=== PATIENT | male | born 1955 | race Caucasian/White ===

== ENCOUNTER 2017-11-22 09:15 | Day surgery (SDC) | payer OTHER ==
--- NOTE | 2017-11-05 21:04 | HP ---
PREOPERATIVE HISTORY AND PHYSICAL: DATE OF ADMISSION/SURGERY: 11/22/17 [facility] DATE OF OFFICE VISIT: 11/04/17 ATTENDING SURGEON: Lebron Clemente MD * (DICTATED BY SULEIMAN ZAFAR) PROCEDURE: Right knee arthroscopy, partial meniscectomy. CHIEF COMPLAINT: Right knee pain. HISTORY OF PRESENT ILLNESS: Jose is a 62-year-old male who presents to the clinic with right knee pain due to a meniscus tear. He has failed conservative measures and has therefore agreed to undergo a right knee arthroscopy and partial meniscectomy with Dr. Clemente on 11/22/17. PAST MEDICAL HISTORY: Positive for Lyme disease, possible sleep apnea but has never been diagnosed with ulcerative colitis. PAST SURGICAL HISTORY: Tonsillectomy. No prior complications with anesthesia. MEDICATIONS: No active medications, ALLERGIES: No known drug allergies. 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 He denies tobacco use. He drinks wine. He denies illegal drug use. FAMILY HISTORY: Positive for diabetes, coronary artery disease, cancer in his mother and father, they are both . Denies family history of DVT or PE. REVIEW OF SYSTEMS: A 14-point review of systems was reviewed with the patient. Positive for current complaint. Otherwise, negative. Denies history of DVT or PE, history of bleeding disorder, chest pain, shortness of breath, fever, or chills. PHYSICAL EXAMINATION GENERAL: A 62-year-old, well-developed, well-nourished male, in no acute distress. Alert and oriented x3. Appropriate mood and affect. Appropriate balance and coordination of the lower extremities. VITAL SIGNS: Height 69.5, weight 180, blood pressure 112/60, respiratory rate 18, temperature 97.8, BMI 26.2. HEENT: Normocephalic, atraumatic. PERRLA. Throat: Clear. NECK: Supple. PULMONARY: Lungs are clear to auscultation bilaterally. No wheezing, rhonchi, or rales. CARDIO: Regular rate and rhythm. S1, S2. No murmurs, gallops, or rubs. No edema. ABDOMEN: Positive bowel sounds, soft, nontender. NEURO: Alert and oriented x3. Cranial nerves grossly intact. Sensation is intact to light touch. MUSCULOSKELETAL: Right lower extremity, skin is intact. No warmth or erythema. Full range of motion, 0 to 130. Stable to varus and valgus stress. Stable Mark. Negative posterior drawer. +5/5 strength with dorsiflexion and plantar flexion. +2 PT pulses. Sensation intact to light touch distally. Pain on deep flexion tenderness to palpation over the medial joint line. Positive Juanis. DIAGNOSTIC STUDIES: Multi-view x-rays and MRI of the right knee revealed medial meniscus tear with mild osteoarthritic changes. IMPRESSION: Right knee medial meniscus tear. PLAN: The patient is scheduled to undergo a right knee arthroscopy, partial meniscectomy with Dr. Clemente on 11/22/17. He will follow up in 10 to 14 days postop for followup and suture removal. Percocet will be used for postop pain management. SULEIMAN ZAFAR [id number]/[facility] #: [id number] DAMIÁN
[~2017-11-22 09:15] MED LIST: Buffered Lidocaine 0.9% SYRIN* 5 ML/SYR SYRINGE INTRADERM ONE; Famotidine IV* 10 MG/ML 2 ML (20 mg) IV ONE
[2017-11-22] MEDS ORDERED: ceFAZolin 2 GM PREMIX (*) 2 GM/50 ML BAG IVPB ONE (09:26)
[2017-11-22] MEDS ORDERED: Famotidine IV* 10 MG/ML 2 ML (20 mg) ONE (09:26)
[2017-11-22] MEDS ORDERED: Lidocain 1% EPI 1:100,000 * 30 ML MDV ONE (09:47)
[2017-11-22] MEDS ORDERED: Bupivacaine 0.25% SDV* 30 ML ONE (09:47)
[2017-11-22] MEDS ORDERED: Midazolam* 1 MG/ML 5 ML VIAL (5 MG) ONE (10:39)
[2017-11-22] MEDS ORDERED: fentaNYL* 50 MCG/ML 2 ML VIAL (100 MCG VIAL) ONE (10:39)
[2017-11-22] MEDS ORDERED: DiMENhydriNATE IV* 50 MG/ML VIAL ONE (11:06)
[2017-11-22] MEDS ORDERED: Ketorolac INJ* 30 MG/ML 1 ML VIAL ONE (11:06)
[2017-11-22] MEDS ORDERED: Propofol* 10 MG/ML 20 ML BTL IV PUSH ONE (11:06)
[2017-11-22] MEDS ORDERED: Lidocaine 2% MPF* 2 ML VIAL ONE (11:06)
[2017-11-22] MEDS ORDERED: Dexamethasone IV* 4 MG/ML 1 ML (4 MG) ONE (11:06)
[2017-11-22] MEDS ORDERED: Acetaminophen TAB* 325 MG PO PRN (11:36)
[2017-11-22] MEDS ORDERED: Ondansetron INJ* 2 MG/ML VIAL IV PRN (11:36)
[2017-11-22] MEDS ORDERED: fentaNYL* 50 MCG/ML 2 ML VIAL (100 MCG VIAL) IV PRN (11:36)
[2017-11-22] MEDS ORDERED: Naloxone* 0.4 MG/ML 1 ML VIAL IV PRN (11:36)
[2017-11-22] MEDS ORDERED: oxyCODONE TAB* 5 MG TAB PO PRN (11:36)
[2017-11-22 12:26] VITALS: BP 121/78
--- NOTE | 2017-11-23 04:14 | OP ---
CC: PCP, Kit Perez MD * DATE OF OPERATION: 11/22/17 [facility] DATE OF : 57 SURGEON: Lebron Clemente MD SILVERWARE ETCHER: None available. PRE-OP DIAGNOSIS: Medial meniscus tear, right knee. POST-OP DIAGNOSIS: Medial meniscus tear, right knee. OPERATIVE PROCEDURE: Right knee arthroscopy with partial medial meniscectomy as well as synovectomy of the lateral compartment. COMPLICATIONS: None. ESTIMATED BLOOD LOSS: Minimal. INDICATIONS: Jose Cramer is a 62-year-old male, who has had persistent medially- based pain. He has had catching and locking. We have done injections and physical therapy and he has failed conservative treatment. Risks and benefits of surgery were discussed at length and included, but not limited to bleeding, infection, damage to nerves, vessels, surrounding structures, wound nonhealing, persistent pain, need for further surgery, scarring, stiffness, incomplete relief of symptoms and risk of anesthesia. DESCRIPTION OF PROCEDURE: The patient was greeted in the preoperative area by the attending surgeon. Correct extremity was marked and consent was confirmed. The patient was brought back to the operating suite, where he was placed in the supine position on the operating table. He then underwent general anesthesia, LMA intubation, after which he was appropriately positioned in the bed. The right leg was then prepped and draped in the usual sterile fashion beginning with chlorhexidine soap, scrub, and alcohol wipe and a final prep with ChloraPrep. After appropriate surgical pause indicating site, side, procedure, and administration of antibiotics, the knee was intra-articularly injected with 1% lidocaine with epi. The lateral portal was made sharply with 11 blade. Scope was introduced into the joint. Joint was examined. There was abundant synovitis anteriorly as well as medially and laterally. The patellofemoral joint had mild chondral changes with grade 0 to 1 changes and the medial and lateral gutters were intact. There was synovitis present anteriorly as well as laterally and medially. The anteromedial portal was made in an outside-in fashion. A shaver was used to debride back the synovitis that was present. ACL and PCL were visualized and found to be intact. The scope was positioned in the medial compartment, had grade 0 to 1 changes in the medial femoral condyle and medial plateau. The medial meniscus had an unstable tear, a degenerative based tear posteromedially. This was debrided back using april, biters with care to prevent any damage to the tibial surface. Once this was completed, attention was directed to the lateral compartment. The lateral compartment had intact meniscus with grade 0 to 1 changes of the lateral femoral condyle and lateral plateau. The knee was placed in extension and a synovectomy was done around the patella particularly laterally and anteriorly as well as medially based. Wounds were copiously irrigated with sterile saline. Final images were obtained. The meniscus was satisfactorily debrided back and the knee was thoroughly lavaged to remove any loose debris. The wound was copiously irrigated with sterile saline and portals were closed with 3-0 nylon. Sterile dressings were applied. The knee was intra-articularly injected with 0.25% Marcaine plain. Sterile dressings were applied. He was awoken from anesthesia , transferred to the PACU in stable condition. POSTOPERATIVE PLAN: He will be weightbearing as tolerated. Crutches for the first 3 to 5 days. Discharged on pain medications. DVT prophylaxis was considered but deferred due to no previous personal or family history. I will see the patient back in 10 to 14 days. [id number]/[facility] #: [id number] DAMIÁN
== END 2017-11-22 12:27 | disposition home or self-care (01) ==
LOC: OREAST 09:15
PROVIDERS: ATTEND Orthopaedic Surgery
DX: S83.241A Other tear of medial meniscus, current injury, right knee, initial encounter (principal); X58.XXXA Exposure to other specified factors, initial encounter; Y92.9 Unspecified place or not applicable; M65.861 Other synovitis and tenosynovitis, right lower leg; G47.33 Obstructive sleep apnea (adult) (pediatric); Z87.891 Personal history of nicotine dependence; M19.90 Unspecified osteoarthritis, unspecified site; F32.9 Major depressive disorder, single episode, unspecified; A69.20 Lyme disease, unspecified
CPT/HCPCS: J0690; J1100; J1240; J1885; J2250; J2704; J3010

== ENCOUNTER 2017-12-29 18:48 | Emergency (ER) | payer OTHER ==
--- OUTSIDE RECORDS SUMMARY | 2017-12-29 19:11 | XMS REPORT ---
:1955 External Reference #:[id number] Author Organization [email or web address] Address [address] [place] [address] [place] [address] Phone [phone] Care Team Providers Name Role Phone Kit Perez MD Primary Care Physician Unavailable Payers Type Date Identification Numbers Payment Provider Subscriber Commercial Policy Number: [id number] [employer] Jose Cramer Group Number: [id number] [id number] PayID: [id number] [place] [address] Problems Date Description Provider Status Onset: 09/16/2017 Localized, primary osteoarthritis Lebron Clemente MD Active Onset: 02/11/2017 Current tear of medial cartilage AND/OR Lebron Clemente MD Active meniscus of knee Onset: 02/02/2017 Arthralgia of the pelvic region and thigh Lebron Clemente MD Active Onset: 02/02/2017 Knee joint effusion Lebron Clemente MD Active Social History Type Date Description Comments ETOH Use Occasionally consumes alcohol Smoking Patient has never smoked Allergies, Adverse Reactions, Alerts Date Description Reaction Status Severity Comments 02/02/2017 NKDA active Medications Medication Date Status Form Strength Qnty SIG Indications Ordering Provider Percocet Active Tablets 5-325mg 20tabs 1-2 tabs Zaneb 018 by mouth MD Chyna every 4-6 hours as needed post op pain No Active Hx Unknown Medications 017 - 018 Medications Administered in Office Medication Date Status Form Strength Qnty SIG Indications Ordering Provider Triamcinolone 05/11/ Administered Injection Erika (Kenalog) 2016 TERI Muniz Triamcinolone 02/11/ Administered Injection Zaneb (Kenalog) 2016 MD Chyna Vital Signs Date Vital Result Comment 12/03/2017 Height 69.5 inches 5'9.50" Weight 180.00 lb BP Systolic 124 mmHg BP Diastolic 80 mmHg Respiratory Rate 18 /min Body Temperature 97.9 F Pain Level 0 BMI (Body Mass Index) 26.2 kg/m2 11/04/2017 Height 69.5 inches 5'9.50" Weight 180.00 lb BP Systolic 112 mmHg BP Diastolic 68 mmHg Respiratory Rate 18 /min Body Temperature 97.8 F Pain Level 2 BMI (Body Mass Index) 26.2 kg/m2 10/14/2017 Height 69.5 inches 5'9.50" Weight 180.00 lb BP Systolic 120 mmHg BP Diastolic 80 mmHg Respiratory Rate 18 /min Pain Level 2 BMI (Body Mass Index) 26.2 kg/m2 09/16/2017 Height 69.5 inches 5'9.50" Weight 180.00 lb BP Systolic 122 mmHg BP Diastolic 80 mmHg Respiratory Rate 20 /min Pain Level 2 BMI (Body Mass Index) 26.2 kg/m2 05/11/2017 Height 69.5 inches 5'9.50" Weight 180.00 lb Heart Rate 68 /min BP Systolic 120 mmHg BP Diastolic 80 mmHg Pain Level 2 BMI (Body Mass Index) 26.2 kg/m2 03/19/2017 Height 69.5 inches 5'9.50" Weight 180.00 lb Heart Rate 61 /min BP Systolic 116 mmHg BP Diastolic 80 mmHg Body Temperature 96.6 F Pain Level 1 BMI (Body Mass Index) 26.2 kg/m2 02/11/2017 Height 69.5 inches 5'9.50" Weight 180.00 lb per patient BP Systolic 110 mmHg BP Diastolic 74 mmHg Respiratory Rate 14 /min Pain Level 3 BMI (Body Mass Index) 26.2 kg/m2 02/02/2017 Height 69.5 inches 5'9.50" Weight 180.00 lb Heart Rate 62 /min BP Systolic Sitting 120 mmHg BP Diastolic Sitting 90 mmHg Body Temperature 96.9 F Pain Level 2 BMI (Body Mass Index) 26.2 kg/m2 Results Description No Information Procedures Date CPT Code Description Status 11/22/2017 47253 Arthroscopy,Knee,Meniscectomy Medial Or Lateral Completed 11/22/2017 21140 Arthroscopy,Knee,Meniscectomy Medial Or Lateral Completed 05/11/201754951 Inject/Drain Joint/Bursa Major W/O US Completed 02/11/201704919 Inject/Drain Joint/Bursa Major W/O US Completed Encounters Type Date Location Provider CPT E/M Dx Office Visit 10/14/2017 [facility] [place] [address] S83.231A 2:15p [facility] Office Visit 09/16/2017 [facility] [place] [address] S83.231D 9:15a [facility] M25.461 M17.11 Office Visit 03/19/2017 10:15a [facility] [place] [address] S83.231A [facility] M25.461 Office Visit 02/11/2017 9:15a [facility] [place] [address] S83.231A [facility] Office Visit 02/02/2017 1:30p [facility] [place] [address] M25.461 [facility] M25.552 M25.551 Plan of Care Future Appointment(s):01/11/2018 8:45 am - Lebron Clemente MD at [facility]
[2017-12-29 20:58] LABS: ABS Basophils 0.1 10^3/ul (0-0.2); ABS Eosinophils 0.1 10^3/ul (0-0.6); ABS Lymphocytes 1.9 10^3/ul (1.0-4.8); ABS Monocytes 1.1 10^3/ul (0-0.8); ABS Neutrophils 11.8 10^3/ul (1.5-7.7); ABS Nucleated RBC 0 10^3/ul; Eosinophil % 0.6 % (0-6); Hematocrit 44 % (42-52); Lymphocyte % 12.5 % (25-47); Mean Corpuscular HGB Conc 34 g/dl (31-36); Mean Corpuscular Hemoglobin 30 pg (27-31); Mean Corpuscular Volume 88 fL (80-94); Mean Platelet Volume 8.2 um3 (7.4-10.4); Nucleated Red Blood Cells % 0.1; Platelet Count 254 10^3/ul (150-450); Red Blood Count 5.02 10^6/ul (4.00-5.40); Red Cell Distribution Width 14 % (10.5-15); White Blood Count 14.9 10^3/ul (3.5-10.8)
[2017-12-29 21:11] LABS: EGFR Non-African American 74.2 (>60)
[2017-12-29 22:40] LABS: Urine Appearance Clear; Urine Blood Negative (Negative); Urine Color Yellow; Urine Ketones Negative (Negative); Urine Protein Negative (Negative); Urine Specific Gravity 1.012 (1.010-1.030); Urine Urobilinogen Negative (Negative)
--- NOTE | 2017-12-29 23:48 | ED ---
Abdominal Pain/Male - HPI Summary HPI Summary: This is valerie Ulyssesjessie Miles documenting for attending Dr. Angy Jones MD. A 62 y/o male presents to ED c/o right sided flank/quadrant pain the entire day reaching 3/10 in severity. As per triage, "Pt has had a right sided flank/ quadrant pain most of the day, admits to having fever and also has hx of ulcerative colitis. Pt has plans to travel to [place] Wednesday but needs to make sure he is okay first and this is nothing serious". According to the patient, he has had constant abdominal pain all day since 0800 and feels like he has severe inflammation of his bowels. He noted that he has not had much of an appetite due to the pain. Also, he noted a fever of 101.0 F at 1800, however the fever came down on its own. Patient has had blood in his stool for the past three weeks, however it has been clearing up because of his Xifaxan medication. PMHx of Ulcerative Colitis and Small Intestine Bacterial Overgrowth (SIBO). Additionally, the patient had knee surgery last month with no issues. No surgeries of his abdomen. 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 Current GI is Dr. Monreal, however it was Dr. Mendoza. His drove him to the hospital and left the car here for him to drive home if need be. Current medications include Xifaxan which he took once this morning. Also takes LDN (which he states is low dose ?naltrexone? for inflammation from Dr. Ontiveros, alternative medicine physician that he has just started seeing). Pt does not take any immunosuppressant medications for his UC. He did not take any Tylenol at home for his pain or fever. Allergic to Mesalamine. He noted that he had chest pain with it. - History of Current Complaint Chief Complaint: EDAbdPain Stated Complaint: ABD PAIN/FEVER Time Seen by Provider: 12/29/17 23:44 Hx Obtained From: Patient Onset/Duration: Sudden Onset, Lasting Days Timing: Constant Severity Initially: Mild Severity Currently: Mild Pain Intensity: 3 Pain Scale Used: 0-10 Numeric Location: Discrete At: RLQ Radiates: Yes Radiates to: Back - right back Character: Sharp Aggravating Factor(s): Nothing Alleviating Factor(s): Nothing Associated Signs And Symptoms: Positive: Fever, Decreased Appetite - Allergies/Home Medications Allergies/Adverse Reactions: Allergies Allergy/AdvReac Type Severity Reaction Status Date / Time mesalamine Allergy n/v, chest Verified 11/22/17 09:46 pain Home Medications: Home Medications Naltrexone TAB* 50 mg PO DAILY 12/30/17 [History Confirmed 12/30/17] RiFAXimin* [Xifaxan*] 550 mg PO TID 12/30/17 [History Confirmed 12/30/17] PMH/Surg Hx/FS Hx/Imm Hx Previously Healthy: No - ulcerative colitis Endocrine/Hematology History: Denies: Hx Diabetes Cardiovascular History: Reports: Hx Rheumatic Fever - as a child Denies: Hx Hypertension, Hx Pacemaker/ICD, Other Cardiovascular Problems/ Disorders GI History: Reports: Hx Irritable Bowel, Other GI Disorders - ulcerative colitis History: Denies: Hx Renal Disease Musculoskeletal History: Denies: Other Musculoskeletal History Sensory History: Denies: Hx Contacts or Glasses, Hx Hearing Aid Opthamlomology History: Denies: Hx Contacts or Glasses Neurological History: Denies: Other Neuro Impairments/Disorders Psychiatric History: Reports: Hx Depression - no meds Denies: Hx Panic Disorder - Cancer History Cancer Type, Location and Year: BASAL CELL CARCINOMA X3 REMOVED FROM NOSE - Surgical History Surgery Procedure, Year, and Place: TONSILECTOMY Hx Anesthesia Reactions: No - Immunization History Immunizations Up to Date: Yes Infectious Disease History: No Infectious Disease History: Denies: Traveled Outside the [place] in Last 30 Days - Family History Known Family History: Positive: Other - Colon cancer, ulcerative colitis ( daughter) in end of the proctitis - Social History Alcohol Use: Weekly Alcohol Amount: 1-2 per week Substance Use Type: Reports: None Smoking Status (MU): Former Smoker Amount Used/How Often: 1/2 pack a day for 25 yrs Review of Systems Positive: Fever - temp 101 at 1800 12/29/17 Cardiovascular: Negative Respiratory: Negative Positive: Abdominal Pain, Other - POSITIVE: Appetite changes Positive: no symptoms reported Skin: Negative Neurological: Negative Psychological: Normal All Other Systems Reviewed And Are Negative: Yes Physical Exam - Summary Physical Exam Summary: Appearance: Well-appearing, moderate pain distress, well-nourished Skin:Warm, color reflects adequate perfusion, dry Head:Normal Head/Face inspection, atraumatic Eyes: Conjunctiva clear ENT:Normal inspection Neck:Supple, no nodes, no JVD Respiratory: Lungs clear, normal breath sounds, no respiratory distress Cardio: RRR, No murmur, pulses normal, brisk capillary refill Abdomen: Soft, diffuse tenderness, no guarding, no rebound, no masses Bowel sounds: Present Musculoskeletal: Strength Intact/ROM intact, no calf tenderness, no edema. Psychological: Normal Neuro: Alert, muscle tone normal, no focal deficit Triage Information Reviewed: Yes Vital Signs On Initial Exam: Initial Vitals Temp Pulse Resp BP Pulse Ox 99.1 F 102 18 124/80 95 12/29/17 18:53 12/29/17 18:53 12/29/17 18:53 12/29/17 18:53 12/29/17 18:53 Vital Signs Reviewed: Yes Diagnostics - Vital Signs Vital Signs Temp Pulse Resp BP Pulse Ox 12/29/17 20:35 99.2 F 90 16 117/84 97 12/29/17 18:53 99.1 F 102 18 124/80 95 - Laboratory Lab Results: Lab Results 12/29/17 12/29/17 12/29/17 Range/Units 20:34 20:34 20:34 WBC 14.9 H (3.5-10.8) 10^3/ul RBC 5.02 (4.00-5.40) 10^6/ul Hgb 15.0 (14.0-18.0) g/dl Hct 44 (42-52) % MCV 88 (80-94) fL MCH 30 (27-31) pg MCHC 34 (31-36) g/dl RDW 14 (10.5-15) % Plt Count 254 (150-450) 10^3/ul MPV 8.2 (7.4-10.4) um3 Neut % (Auto) 79.0 (38-83) % Lymph % (Auto) 12.5 L (25-47) % Fentress % (Auto) 7.4 H (0-7) % Eos % (Auto) 0.6 (0-6) % Baso % (Auto) 0.5 (0-2) % Absolute Neuts (auto) 11.8 H (1.5-7.7) 10^3/ul Absolute Lymphs (auto) 1.9 (1.0-4.8) 10^3/ul Absolute Monos (auto) 1.1 H (0-0.8) 10^3/ul Absolute Eos (auto) 0.1 (0-0.6) 10^3/ul Absolute Basos (auto) 0.1 (0-0.2) 10^3/ul Absolute Nucleated RBC 0 10^3/ul Nucleated RBC % 0.1 Sodium 138 (135-145) mmol/L Potassium 3.9 (3.5-5.0) mmol/L Chloride 103 (101-111) mmol/L Carbon Dioxide 25 (22-32) mmol/L Anion Gap 10 (2-11) mmol/L BUN 6 (6-24) mg/dL Creatinine 1.02 (0.67-1.17) mg/dL Est GFR ( Amer) 89.8 (>60) Est GFR (Non-Af Amer) 74.2 (>60) BUN/Creatinine Ratio 5.9 L (8-20) Glucose 105 H (70-100) mg/dL Lactic Acid 0.7 (0.5-2.0) mmol/L Calcium 9.5 (8.6-10.3) mg/dL Total Bilirubin 0.80 (0.2-1.0) mg/dL AST 23 (13-39) U/L ALT 22 (7-52) U/L Alkaline Phosphatase 82 (34-104) U/L C-Reactive Protein 6.92 (<8.01) mg/L Total Protein 7.3 (6.4-8.9) g/dL Albumin 4.3 (3.2-5.2) g/dL Globulin 3.0 (2-4) g/dL Albumin/Globulin Ratio 1.4 (1-3) Lipase 22 (11.0-82.0) U/L Urine Color Urine Appearance Urine pH (5-9) Ur Specific Barnum (1.010-1.030) Urine Protein (Negative) Urine Ketones (Negative) Urine Blood (Negative) Urine Nitrate (Negative) Urine Bilirubin (Negative) Urine Urobilinogen (Negative) Ur Leukocyte Esterase (Negative) Urine Glucose (Negative) Urine Ascorbic Acid (Negative) 12/29/17 Range/Units 22:17 WBC (3.5-10.8) 10^3/ul RBC (4.00-5.40) 10^6/ul Hgb (14.0-18.0) g/dl Hct (42-52) % MCV (80-94) fL MCH (27-31) pg MCHC (31-36) g/dl RDW (10.5-15) % Plt Count (150-450) 10^3/ul MPV (7.4-10.4) um3 Neut % (Auto) (38-83) % Lymph % (Auto) (25-47) % Fentress % (Auto) (0-7) % Eos % (Auto) (0-6) % Baso % (Auto) (0-2) % Absolute Neuts (auto) (1.5-7.7) 10^3/ul Absolute Lymphs (auto) (1.0-4.8) 10^3/ul Absolute Monos (auto) (0-0.8) 10^3/ul Absolute Eos (auto) (0-0.6) 10^3/ul Absolute Basos (auto) (0-0.2) 10^3/ul Absolute Nucleated RBC 10^3/ul Nucleated RBC % Sodium (135-145) mmol/L Potassium (3.5-5.0) mmol/L Chloride (101-111) mmol/L Carbon Dioxide (22-32) mmol/L Anion Gap (2-11) mmol/L BUN (6-24) mg/dL Creatinine (0.67-1.17) mg/dL Est GFR ( Amer) (>60) Est GFR (Non-Af Amer) (>60) BUN/Creatinine Ratio (8-20) Glucose (70-100) mg/dL Lactic Acid (0.5-2.0) mmol/L Calcium (8.6-10.3) mg/dL Total Bilirubin (0.2-1.0) mg/dL AST (13-39) U/L ALT (7-52) U/L Alkaline Phosphatase (34-104) U/L C-Reactive Protein (<8.01) mg/L Total Protein (6.4-8.9) g/dL Albumin (3.2-5.2) g/dL Globulin (2-4) g/dL Albumin/Globulin Ratio (1-3) Lipase (11.0-82.0) U/L Urine Color Yellow Urine Appearance Clear Urine pH 6.0 (5-9) Ur Specific Barnum 1.012 (1.010-1.030) Urine Protein Negative (Negative) Urine Ketones Negative (Negative) Urine Blood Negative (Negative) Urine Nitrate Negative (Negative) Urine Bilirubin Negative (Negative) Urine Urobilinogen Negative (Negative) Ur Leukocyte Esterase Negative (Negative) Urine Glucose Negative (Negative) Urine Ascorbic Acid * A (Negative) Result Diagrams: 12/30/17 07:11 12/29/17 20:34 Lab Statement: Any lab studies that have been ordered have been reviewed, and results considered in the medical decision making process. - CT CT A/P CT Interpretation Completed By: Radiologist - 1. Appendix in nornmal caliber with air within distal tip. Subtle periappenendiceal fat stranging which may be due to early appendicitis. 2. Diffuse mural thickening of rectosigmoid with surrounding fat stranding, most consistent with the patient's known history of UC. 3. Moderate fecal load. ED physician reviewed this radiology report. Re-Evaluation - Re-Evaluation First Eval Re-Evaluation Time: 06:30 Change: Improved Comment: was able to sleep, pain is better. Re-exam: pain is more RLQ, + voluntary guarding, no rebound. discussed CT result. Second Eval Re-Evaluation Time: 08:15 Change: Unchanged Comment: ambulatory, pain is controlled. Eleanor Cutler NP from surgery consulting. WBC decreased, CRP increased. Third Eval Re-Evaluation Time: 09:00 Change: Unchanged Comment: Eleanor Cutler NP reviewed case with Dr. Zamudio who reviewed CT himself, and states the entire picture does not represent acute appendicitis, and that pt should have definite GI follow up, but does not need acute surgical intervention, or surgical follow up. Advises that pt should not fly out of town. Fourth Eval Re-Evaluation Time: 09:25 Change: Improved Comment: Dr. Oksana Washington reviews pt's office records and consults by phone, recommends budesonide 9mg qd, and definite follow up in the office within a week. Also recommends that pt should not fly out of town. Re-exam abd mild diffuse tenderness, no guarding, no rebound. Abdominal Pain Fem Course/Dx - Course Course Of Treatment: Patient has chest pain with taking Mesalamine. Will not give nonsteroidal because Mesalamine is a salicyate and he had chest pain with it so we are going to treat with narcotics. Pt had IV fluids. He had surgical consult, and GI consult by phone with review of records and case presentation. Repeat CBC decreased to normal. CRP increased. No fever documented in ED. No vomiting in ED. Start budesonide as outpt. Return to the ED if any new or worsening symptoms. - Diagnoses Differential Diagnosis/HQI/PQRI: Appendicitis, Bowel Obstruction, Constipation, Ischemic Bowel, Other - ulcerative colitis flare Provider Diagnoses: Acute abdominal pain, Ulcerative colitis, acute Discharge - Sign-Out/Discharge Documenting (check all that apply): Patient Departure - home; CARE COMPLETED BY DR JONES, NOT SIGNED OUT, DC'D HOME BY DR JONES Signing out patient TO: Vance Damian - PT NOT SIGNED OUT, CARE COMPLETED BY DR JONES. PT DC'D HOME BY DR. JONES Receiving patient FROM: Angy Jones - Discharge Plan Condition: Stable Disposition: HOME Prescriptions: Budesonide [Uceris] 9 mg PO DAILY #30 tabdr...er Forms: *Gen. Provider Communication Referrals: Kit Perez MD [Primary Care Provider] - Oksana Washington DO [Doctor of Osteopathy] - 1 Week Keturah Ontiveros PA [Physician Jewelry Facer] - As Soon As Possible Additional Instructions: We have given you a copy of your labs and CT report from today. You were given morphine 6mg and IV fluids 2 liters while in the ER. You had consults from Eleanor Cutler NP representing Dr. Zamudio from surgery , and from Dr. Oksana Washington by phone who reviewed your office records and my presentation of your symptoms at this time. Dr. Washington recommends that you need treatment of your ulcerative colitis. She recommends budesonide 9mg daily, which is a steroid to tame the ulcerative colitis at this time. Both Dr. Zamudio and Dr. Washington state that you should not fly or travel until you are cleared by GI. Return to the ER if you have new or worsening symptoms. - Billing Disposition and Condition Condition: STABLE Disposition: Home
[2017-12-30] MEDS ORDERED: Ketorolac INJ* 30 MG/ML 1 ML VIAL IV PUSH ONE (01:58)
[2017-12-30] MEDS ORDERED: Morphine VIAL* 4 MG/ML VIAL (1 ml vial) IV ONE (02:04)
[2017-12-30] MEDS: NS 0.9% 1000 ML* 2,000 ML IV SCH ×2 (02:15→08:22)
[2017-12-30] MEDS ORDERED: Iohexol 300* (CONTRAST) 10 ML SDV IV ONE (03:11)
[2017-12-30] MEDS ORDERED: NS 0.9% 1000 ML* 2,000 ML IV SCH (06:45)
[2017-12-30 07:25] LABS: ABS Basophils 0 10^3/ul (0-0.2); ABS Eosinophils 0.2 10^3/ul (0-0.6); ABS Lymphocytes 1.5 10^3/ul (1.0-4.8); ABS Monocytes 0.8 10^3/ul (0-0.8); ABS Neutrophils 4.7 10^3/ul (1.5-7.7); ABS Nucleated RBC 0 10^3/ul; Eosinophil % 2.3 % (0-6); Hematocrit 41 % (42-52); Hemoglobin 14.1 g/dl (14.0-18.0); Mean Corpuscular HGB Conc 35 g/dl (31-36); Mean Corpuscular Hemoglobin 30 pg (27-31); Mean Corpuscular Volume 88 fL (80-94); Mean Platelet Volume 8.2 um3 (7.4-10.4); Nucleated Red Blood Cells % 0; Platelet Count 226 10^3/ul (150-450); Red Blood Count 4.63 10^6/ul (4.00-5.40); Red Cell Distribution Width 13 % (10.5-15); White Blood Count 7.3 10^3/ul (3.5-10.8)
--- NOTE | 2017-12-30 08:21 | RAD ---
CLINICAL HISTORY: fever, abd pain, hx ulcerative colitis COMPARISON: None TECHNIQUE: Multiple contiguous axial CT scans were obtained of the abdomen and pelvis after the administration of intravenous contrast. Coronal and sagittal multiplanar reformations are submitted for review. Oral contrast was administered. Delayed images were obtained through the abdomen. FINDINGS: LUNG BASES: The lung bases are clear. LIVER: The liver is normal in shape, size, contour, and attenuation. BILE DUCTS: There is no intrahepatic or extrahepatic biliary dilatation. GALLBLADDER: The gallbladder is normal, without pericholecystic inflammatory change. PANCREAS: The pancreas is normal, without mass or ductal dilatation. SPLEEN: Normal in size and appearance. UPPER GI TRACT: Evaluation of the gastrointestinal tract is limited by incomplete gastric distention. The upper GI tract is unremarkable. SMALL BOWEL AND MESENTERY: The small bowel is normal in contour, course, and caliber. There is no obstruction or dilatation. COLON: There is mucosal thickening and enhancement diffusely involving the distal sigmoid colon and rectum. The pericolonic mesentery is plethoric in this region.. There is a tubular, vermiform, hollow viscus that is blind ending, and originates from the cecum, consistent with a normal appendix. There is minimal stranding of the periappendiceal fat is seen on coronal image 45.. ADRENALS: Normal bilaterally. KIDNEYS: The kidneys are normal in shape, size, contour, and axis. There is no hydronephrosis or nephrolithiasis. BLADDER: The bladder is smooth in contour. PELVIC ORGANS: The prostate gland is normal. The seminal vesicles are symmetric. AORTA: There is calcific atherosclerotic disease of the abdominal aorta and its branches, without aneurysmal dilatation IVC: Unremarkable LYMPH NODES: There is no lymphadenopathy by size criteria. ABDOMINAL WALL: There is a small fat-containing umbilical hernia. BONES AND SOFT TISSUES: There is a left unilateral pars defect at L5. Mild degenerative changes are noted. OTHER: None IMPRESSION: 1. THERE IS MUCOSAL THICKENING AND PERICOLONIC FAT. CHANGES OF THE DISTAL SIGMOID COLON AND RECTUM CONSISTENT WITH THE HISTORY OF INFLAMMATORY BOWEL DISEASE. 2. THERE IS MINIMAL PERIAPPENDICEAL INFLAMMATORY CHANGE, THOUGH THE APPENDIX IS NORMAL IN CALIBER. THE DIFFERENTIAL DOES INCLUDE EARLY APPENDICITIS IN THE CORRECT CLINICAL SETTING. 3. ATHEROSCLEROSIS. 4. FATTY INFILTRATION OF THE LIVER. R2
[2017-12-30 09:57] VITALS: BP 137/93
--- NOTE | 2017-12-30 19:45 | CONS ---
CC: Dr. [facility]; Oksana Washington DO; Dr. Perez [facility] * SURGICAL CONSULTATION NOTE: DATE OF CONSULT: This patient was seen on , 12/30/17, in the [facility] Emergency Department. ATTENDING PHYSICIAN: Dr. Tristan Zamudio. CHIEF COMPLAINT: Abdominal pain. HISTORY OF PRESENT ILLNESS: The patient is a 62-year-old male with a history of chronic ulcerative colitis. He presented to the emergency room on 12/29/17 complaining of generalized lower abdominal pain that was localizing to the right lower abdomen associated with bloating, fever, and chills at home. He states that his temperature was 101 at home. Because he was planning to travel to [place], he called his primary care provider who advised him to come to the emergency room for evaluation. He reports generalized abdominal discomfort and bloating for the past 2 months and describes constipation with small hard stools with occasional blood in the stool. He denies any nausea or vomiting. He has a decreased appetite. He has had no previous abdominal surgeries. He was a patient of Dr. Tavares Mendoza for management of his ulcerative colitis and had a colonoscopy about [address] Mendoza left the practice, the patient saw a nurse practitioner in the fall of 2016 and was started on mesalamine, which he could not tolerate due to side effects of chest pain, fever , and chills. More recently, he has been seeing nurse practitioner, Keturah Ontiveros for alternative therapy for the treatment of ulcerative colitis including low-dose naltrexone, Xifaxan, and over- the-counter herbal cocktail called "Avantil." In the emergency department, his white blood cell count was initially elevated at 14.9 last evening and on repeat this morning, the white count was 7.3, no left shift. His CRP this morning is 26.9. CAT scan of the abdomen and pelvis revealed mucosal thickening and pericolonic fat changes of the distal sigmoid colon and rectum consistent with history of inflammatory bowel disease; the appendix was normal in caliber with minimal periappendiceal inflammatory changes. PAST MEDICAL HISTORY: Ulcerative colitis and small intestine bacterial overgrowth. PAST SURGICAL HISTORY: Knee surgery and tonsillectomy. CURRENT MEDICATIONS: 1. Xifaxan 500 mg p.o. t.i.d., which is an antibiotic specific for irritable bowel syndrome. 2. Low-dose naltrexone, which is utilized for bloating and inflammation. 3. "Avantil" zamy-opa-klkydxk herbal cocktail. ALLERGIES: MESALAMINE caused chest pain, fever, and chills. FAMILY HISTORY: No known anesthesia complications, bleeding tendencies, or clotting disorders. SOCIAL HISTORY: He is and is employed at [employer]. He is a nonsmoker. REVIEW OF SYSTEMS: Constitutional: He reports fever and chills at home. No excessive fatigue and the patient states that he has lost approximately 10 pounds over the last month. Endocrine: No diabetes or thyroid disease. Respiratory: No chronic cough or dyspnea. Cardiovascular: No chest pain or palpitations. Gastrointestinal: As described in history of present illness. Genitourinary: No dysuria. Musculoskeletal: Recent knee surgery. No complaints today of joint or back pain. Neurologic: No headache or blurred vision. No areas of focal weakness. General: No previous anesthesia complications. PHYSICAL EXAM: General Survey: The patient is a 62-year-old male, well developed, well nourished, in no acute distress. He is not ill appearing and he is afebrile. Skin: Warm, dry, intact. HEENT: Benign. NECK: Supple. No cervical lymphadenopathy. LUNGS: Breath sounds bilaterally clear and equal. Heart: Regular rate and rhythm. No murmurs or rubs appreciated. Abdomen: Hypoactive bowel sounds, soft, and nondistended. Mildly tender in the left lower quadrant greater than the right lower quadrant. No guarding. No rebound. No obvious masses or organomegaly. The abdominal exam was done with very deep palpation. Genitalia and rectal exams done recently, not repeated. Extremities are warm without edema or skin ulceration. Neurologic: Alert and oriented x3. Steady gait. IMPRESSION: As discussed with Dr. Zamudio and also Dr. Angy Haque from the emergency department, the CAT scan was reviewed by Dr. Zamudio and was not considered impressive for acute appendicitis and the clinical exam did not support acute appendicitis; most likely the cause of his current abdominal pain is a flare of ulcerative colitis. PLAN: A GI consult was requested and Dr. Oksana Washington recommended starting steroids, specifically budesonide and then, the patient will have followup in the gastroenterology office in 1 week. The patient was advised that travel may be risky at this time. The patient stated that he will not be traveling. He knows with any worsening abdominal pain or any other symptoms, to return to the emergency department. TIME SPENT: Ninety minutes with greater than 50% in zmeg-eu-jvio history taking and coordination of care. LIBRADO TATE, LUKAS [id number]/[facility] #: [id number] DAMIÁN
== END 2017-12-30 09:56 | disposition home or self-care (01) ==
LOC: ED 18:48
DX: R10.31 Right lower quadrant pain (principal); K51.90 Ulcerative colitis, unspecified, without complications; R50.9 Fever, unspecified; Z88.8 Allergy status to other drugs, medicaments and biological substances; Z85.828 Personal history of other malignant neoplasm of skin; Z83.79 Family history of other diseases of the digestive system; Z80.0 Family history of malignant neoplasm of digestive organs; Z87.891 Personal history of nicotine dependence
CPT/HCPCS: 36415; 74177; 80053; 81003; 83605; 83690; 85025; 86140; 86141; 96374; 99284; J2270; Q9967

== ENCOUNTER 2019-01-23 10:02 | Emergency (ER) | payer OTHER ==
--- OUTSIDE RECORDS SUMMARY | 2019-01-23 10:12 | XMS REPORT | Continuity of Care Document ---
:1955 External Reference #:[id number] Author Name Mlsanty Shaye Care Team Providers Name Role Phone Kit Perez MD Primary Care Physician Unavailable Payers Date Identification Numbers Payment Provider Subscriber Policy Number: [id number] [employer] Number: [id number] [address] PayID: [id number] [place] [address] Problems Active Problems Provider Date Localized, primary osteoarthritis Lebron Clemente MD Onset: 09/16/2017 Current tear of medial cartilage AND/OR meniscus Lebron Clemente MD Onset: of knee Arthralgia of the pelvic region and thigh Lebron Clemente MD Onset: 02/02/2017 Knee joint effusion Lebron Clemente MD Onset: 02/02/2017 Family History Date Family Member(s) Observation Comments General Cancer General Heart Disease General Diabetes Father due to aneurysm () - At age 62 Mother due to Colon Cancer () - At age 84 Siblings 5 4 still alive Social History Type Date Description Comments Sex Unknown Marital Status Significant Other Lives With Female 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 ETOH Use Denies alcohol use Tobacco Use Start: Unknown Patient has never smoked Recreational Drug Use Denies Drug Use Smoking Status Reviewed: 01/10/19 Patient has never smoked Exercise Type/Frequency Exercises regularly Allergies, Adverse Reactions, Alerts Active Allergies Reaction Severity Comments Date Lialda 11/10/2018 Inactive Allergies NKDA 02/02/2017 Medications Active Medications SIG Qnty Indications Ordering Provider Date Acyclovir take 1 tablet by Unknown 400mg Tablets mouth twice a day Naltrexone Low Dose daily Unknown 4.5mg Powder History Medications No Active Medications Unknown 01/11/2018 - 11/10/2018 Percocet 1-2 tabs by mouth 20tabs Lebron Clemente MD 11/20/2017 - 5-325mg Tablets every 4-6 hours 01/10/2018 as needed post op pain No Active Medications Unknown 02/02/2017 - 11/20/2017 Naltrexone HCL 1 by mouth every Unknown - Unknown 50mg day Tablets Medications Administered in Office Medication SIG Qnty Indications Ordering Provider Date Triamcinolone (Kenalog) rEika Muniz PA-C 05/11/2017 Injection Triamcinolone (Kenalog) Lebron Clemente MD 02/11/2017 Injection Vital Signs Date Vital Result Comment 01/10/2019 9:18am Height 69 inches 5'9" Weight 162.12 lb Heart Rate 60 /min BP Systolic Sitting 114 mmHg Lue regular cuff BP Diastolic Sitting 78 mmHg Lue regular cuff Respiratory Rate 12 /min O2 % BldC Oximetry 97 % BMI (Body Mass Index) 23.9 kg/m2 Neck Circumference in inches 15 11/15/2018 10:16am Weight 152.00 lb Heart Rate 64 /min BP Systolic 120 mmHg BP Diastolic 68 mmHg Respiratory Rate 16 /min Body Temperature 96.9 F 07/15/2018 8:58am Height 69.5 inches 5'9.50" Weight 180.00 lb Heart Rate 72 /min BP Systolic 128 mmHg BP Diastolic 78 mmHg Respiratory Rate 18 /min Body Temperature 96.4 F Pain Level 4 BMI (Body Mass Index) 26.2 kg/m2 01/11/2018 8:43am Height 69.5 inches 5'9.50" Weight 180.00 lb BP Systolic 122 mmHg BP Diastolic 72 mmHg Respiratory Rate 20 /min Pain Level 0 BMI (Body Mass Index) 26.2 kg/m2 12/03/2017 9:06am Height 69.5 inches 5'9.50" Weight 180.00 lb BP Systolic 124 mmHg BP Diastolic 80 mmHg Respiratory Rate 18 /min Body Temperature 97.9 F Pain Level 0 BMI (Body Mass Index) 26.2 kg/m2 11/04/2017 2:21pm Height 69.5 inches 5'9.50" Weight 180.00 lb BP Systolic 112 mmHg BP Diastolic 68 mmHg Respiratory Rate 18 /min Body Temperature 97.8 F Pain Level 2 BMI (Body Mass Index) 26.2 kg/m2 10/14/2017 2:31pm Height 69.5 inches 5'9.50" Weight 180.00 lb BP Systolic 120 mmHg BP Diastolic 80 mmHg Respiratory Rate 18 /min Pain Level 2 BMI (Body Mass Index) 26.2 kg/m2 09/16/2017 9:19am Height 69.5 inches 5'9.50" Weight 180.00 lb BP Systolic 122 mmHg BP Diastolic 80 mmHg Respiratory Rate 20 /min Pain Level 2 BMI (Body Mass Index) 26.2 kg/m2 05/11/2017 1:12pm Height 69.5 inches 5'9.50" Weight 180.00 lb Heart Rate 68 /min BP Systolic 120 mmHg BP Diastolic 80 mmHg Pain Level 2 BMI (Body Mass Index) 26.2 kg/m2 03/19/2017 10:18am Height 69.5 inches 5'9.50" Weight 180.00 lb Heart Rate 61 /min BP Systolic 116 mmHg BP Diastolic 80 mmHg Body Temperature 96.6 F Pain Level 1 BMI (Body Mass Index) 26.2 kg/m2 02/11/2017 9:24am Height 69.5 inches 5'9.50" Weight 180.00 lb per patient BP Systolic 110 mmHg BP Diastolic 74 mmHg Respiratory Rate 14 /min Pain Level 3 BMI (Body Mass Index) 26.2 kg/m2 02/02/2017 1:35pm Height 69.5 inches 5'9.50" Weight 180.00 lb Heart Rate 62 /min BP Systolic Sitting 120 mmHg BP Diastolic Sitting 90 mmHg Body Temperature 96.9 F Pain Level 2 BMI (Body Mass Index) 26.2 kg/m2 Procedures Date Code Description Status 11/22/2017 77967 Arthroscopy,Knee,Meniscectomy Medial Or Lateral Completed 11/22/2017 64044 Arthroscopy,Knee,Meniscectomy Medial Or Lateral Completed 05/11/201754331 Inject/Drain Joint/Bursa Major W/O US Completed 02/11/201706189 Inject/Drain Joint/Bursa Major W/O US Completed Encounters Type Date Location Provider Dx Diagnosis Office Visit 11/15/2018 [facility] S. K61.0 Anal abscess 10:00a [facility] MD Office Visit 07/15/2018 Orthopedic Lebron Clemente MD M25.561 Pain in right 8:45a [facility] knee M25.461 Effusion, right knee M17.11 Unilateral primary osteoarthritis, right knee Office Visit 12/30/2017 7:00a Surgical Margot Daley R10.31 Right lower [facility] LUKAS Arauz quadrant pain K51.90 Ulcerative colitis, unspecified, without complications Office Visit 10/14/2017 2:15p Orthopedic Lebron Clemente, S83.231A Complex tear [facility], current injury, r knee, init Office Visit 09/16/2017 9:15a Orthopedic Lebron Clemente S83.231D Complex [facility], current injury, r knee, subs M25.461 Effusion, right knee M17.11 Unilateral primary osteoarthritis, right knee Office Visit 03/19/2017 10:15a Orthopedic Lebron Clemetne, S83.231A Complex tear [facility], current injury, r knee, init M25.461 Effusion, right knee Office Visit 02/11/2017 9:15a Orthopedic Lebron Clemente, S83.231A Complex tear [facility], current injury, r knee, init Office Visit 02/02/2017 1:30p Orthopedic Lebron Clemente M25.461 Effusion, [facility] right [facility] M25.552 Pain in left hip M25.551 Pain in right hip Plan of Treatment Future Appointment(s):01/27/2019 1:00 pm - Katherine Purdy NP at [facility]01/10/2019 - Kandice Lockhart, MDR06.83 SnoringNew Orders:Home Sleep Testing, Scheduled: 01/10/19Follow up:2 nmtyhK57.83 Other fatigue
--- NOTE | 2019-01-23 11:33 | ED ---
Skin Complaint - HPI Summary HPI Summary: This patient is a 63 year old M presenting to [facility] with a chief complaint of abscess near anus since two months ago. Pt reports he saw Dr. Olivarez but did not have a drainable collection at that time. He was able to use salt baths and vitamin c which reduced the abscess and it did not need lancing. About 4-5 days ago the abscess came back. Pt reports the abscess broke while he was in the waiting room, and the pain has reduced drastically. Pt has a PMHx of Ulcerative Colitis, and pt has made a dietary/lifestyle change. Due to his Ulcerative Colitis he does not want antibiotics. Patient denies abdominal pain, diarrhea. Patient reports fevers 2 days ago at home. Per triage, the patient rates the pain 5/10 in severity, achy, located in his R buttocks. - History of Current Complaint Chief Complaint: EDRashSkinAbscess Time Seen by Provider: 01/23/19 11:09 Stated Complaint: INFECTED ABSCESS PER PT Hx Obtained From: Patient Onset/Duration: Started Days Ago, Worse Since - 4-5 days ago Skin Exposure Onset/Duration: Days Ago Timing: Constant Onset Severity: Severe Current Severity: Moderate Pain Intensity: 5 Pain Scale Used: 0-10 Numeric Skin Location: Other: - right perineum Character: Swelling, Painful Aggravating Symptom(s): Nothing Alleviating Symptom(s): Other: - salt baths and vitamin c Associated Signs & Symptoms: Fever - Allergy/Home Medications Allergies/Adverse Reactions: Allergies Allergy/AdvReac Type Severity Reaction Status Date / Time mesalamine Allergy n/v, chest Verified 01/23/19 11:10 pain Home Medications: Home Medications Naltrexone TAB* 4.5 mg PO DAILY 01/23/19 [History Confirmed 01/23/19] PMH/Surg Hx/FS Hx/Imm Hx Endocrine/Hematology History: Denies: Hx Diabetes Cardiovascular History: Reports: Hx Rheumatic Fever - as a child Denies: Hx Hypertension, Hx Pacemaker/ICD, Other Cardiovascular Problems/ Disorders Respiratory History: Reports: Hx Sleep Apnea - not diagnosed, Other Respiratory Problems/Disorders - Family hx of lung disease GI History: Reports: Hx Irritable Bowel, Other GI Disorders - ulcerative colitis History: Denies: Hx Renal Disease Musculoskeletal History: Denies: Other Musculoskeletal History Sensory History: Denies: Hx Contacts or Glasses, Hx Hearing Aid Opthamlomology History: Denies: Hx Contacts or Glasses Neurological History: Denies: Other Neuro Impairments/Disorders Psychiatric History: Reports: Hx Depression - no meds Denies: Hx Panic Disorder - Cancer History Cancer Type, Location and Year: BASAL CELL CARCINOMA X3 REMOVED FROM NOSE - Surgical History Surgery Procedure, Year, and Place: TONSILECTOMY Hx Anesthesia Reactions: No Infectious Disease History: No Infectious Disease History: Denies: Traveled Outside the [place] in Last 30 Days - Family History Known Family History: Positive: Other - Colon cancer, ulcerative colitis ( daughter) in end of the proctitis - Social History Occupation: Employed Full-time Alcohol Use: Occasionally Alcohol Amount: 1-2 per week Substance Use Type: Reports: None Hx Tobacco Use: Yes Smoking Status (MU): Former Smoker Amount Used/How Often: 1/2 pack a day for 25 yrs Review of Systems Positive: Fever Negative: Abdominal Pain, Diarrhea Positive: Other - abscess All Other Systems Reviewed And Are Negative: Yes Physical Exam - Summary Physical Exam Summary: Constitutional: Well-developed, Well-nourished, Alert. (-) Distressed Skin: Area of erythema and induration to the right perineum w draining abscess. No fluctuance or tenderness near the rectum HENT: Normocephalic Eyes: Conjunctiva normal Neck: Musculoskeletal ROM normal neck. (-) JVD, (-) Stridor Cardio: Rhythm regular, rate normal, Heart sounds normal Pulmonary/Chest wall: Effort normal. (-) Respiratory distress, (-) Wheezes, (-) Rales Abd: Soft, (-) tenderness, (-) Distension, (-) Guarding, (-) Rebound Musculoskeletal: (-) Edema Neuro: Alert, Oriented x3 Psych: Mood and affect Normal Triage Information Reviewed: Yes Vital Signs On Initial Exam: Initial Vitals Temp Pulse Resp BP Pulse Ox 97.9 F 78 18 123/84 96 01/23/19 10:04 01/23/19 10:04 01/23/19 10:04 01/23/19 10:04 01/23/19 10:04 Vital Signs Reviewed: Yes Diagnostics - Vital Signs Vital Signs Temp Pulse Resp BP Pulse Ox 01/23/19 10:04 97.9 F 78 18 123/84 96 - Laboratory Lab Statement: Any lab studies that have been ordered have been reviewed, and results considered in the medical decision making process. Re-Evaluation - Re-Evaluation First Eval Re-Evaluation Time: 11:35 Comment: Discussed plan of care, and follow up with Dr. Olivarez Course/Dx - Course Course Of Treatment: 63-year-old male with a history of ulcerative colitis and prior perineal abscess presents with abscess. PE w well appearing male, afebrile. Draining perineal abscess to the right perineum with surrounding induration. No perirectal erythema or tenderness. Will not perform I&D as abscesses is already draining. Patient declining antibiotics would like to try conservative therapy with sitz bath. Patient to follow-up with Dr. Roberts on Wednesday for wound recheck. - Diagnoses Provider Diagnoses: Abscess - Physician Notifications Discussed Care Of Patient With: Margarito Olivarez Time Discussed With Above Provider: 11:34 Instructed by Provider To: Other - Discussed patient's case with Dr. Olivarez, who agrees reg see pt wednesday for a wound re-check Discharge - Sign-Out/Discharge Documenting (check all that apply): Patient Departure - Discharge Patient Received Moderate/Deep Sedation with Procedure: No - Discharge Plan Condition: Stable Disposition: HOME Patient Education Materials: Abscess (ED) Referrals: Kit Perez MD [Primary Care Provider] - Margarito Olivarez MD [Medical Doctor] - 01/25/19 Additional Instructions: You were seen in the emergency department for an abscess. Since it is draining we do not need to perform any incision and drainage. You declined antibiotics therefore we recommend that you pay close attention for increased warmth, redness, draining or fevers. Follow up with Dr. Olivarez on Wednesday. Please call his office and tell him that he is aware that you are an add on for the day and he is aware of this. If any studies were not completed at the time of discharge you will be called with the relevant results. Please follow up with your primary care doctor in next 2-3 days and return to emergency department for worsening or concerning symptoms. - Billing Disposition and Condition Condition: STABLE Disposition: Home - Attestation Statements Document Initiated by Scribe: Yes Documenting Scribe: Asha Abraham Provider For Whom Scribe is Documenting (Include Credential): Dr. Jorge Pérez MD Scribe Attestation: Asha Peters scribed for Dr. Jorge Pérez MD on 01/23/19 at 1202. Scribe Documentation Reviewed: Yes Provider Attestation: The documentation as recorded by the jenniferibAsha aparicio accurately reflects the service I personally performed and the decisions made by me, Dr. Jorge Pérez MD Status of Scribe Document: Viewed
[2019-01-23 12:07] VITALS: BP 112/69
== END 2019-01-23 12:04 | disposition home or self-care (01) ==
LOC: ED 10:02
DX: K61.1 Rectal abscess (principal); R50.9 Fever, unspecified; Z85.828 Personal history of other malignant neoplasm of skin; Z87.891 Personal history of nicotine dependence
CPT/HCPCS: 99282